=== PATIENT | male | born 1985 | race Caucasian/White ===

== ENCOUNTER → 2023-01-16 | Emergency (ER) | payer OTHER ==
[~2023-01-16] VITALS: Ht 175.3 cm; Wt 79.4 kg
[~2023-01-16] MED LIST: OMEP40CA21 PO
--- NOTE | 2023-01-16 14:10 | NUR ---
DONN PARKER AT BEDSIDE FOR MSE.
--- NOTE | 2023-01-16 14:36 | NUR ---
PT C/C ABD. PAIN RADIATING TO BACK; PAIN COMES AND GOES 02/21 SHARP. DENIES N/V/D. DENIES CP/SOB.
[2023-01-16 14:40] LABS: HEMATOCRIT 43.5 % (36.7-47.1); MEAN CORPUSCULAR HEMOGLOBIN 32.1 uug (23.8-33.4); MEAN CORPUSCULAR VOLUME 92.7 fL (73.0-96.2); PLATELET COUNT (AUTO) 166 K/uL (152-348)
[2023-01-16 14:53] LABS: CARBON DIOXIDE 28 mmol/L (21-32); CHLORIDE 103 mmol/L (98-107); GLUCOSE 118 mg/dL (74-106); POTASSIUM 3.7 mmol/L (3.5-5.1); UREA NITROGEN, BLOOD 14 mg/dL (7-18)
[2023-01-16 15:02] LABS: *BILIRUBIN,URIN NEGATIVE (NEGATIVE); *BLOOD, URINE NEGATIVE (NEGATIVE); *CLARITY,URINE CLEAR (CLEAR); *COLOR,URINE YELLOW (YELLOW); *KETONES,URINE NEGATIVE (NEGATIVE); *UROBILINOGEN,URINE 0.2 E.U./dl (NORMAL); LEUKOCYTE ESTERASE ,URINE NEGATIVE (NEGATIVE); NITRITE, URINE NEGATIVE (NEGATIVE); UGLUCOSE NEGATIVE (NEGATIVE)
[2023-01-16 15:02] LABS: ALANINE AMINOTRANSFERASE 32 U/L (16-63); ALKALINE PHOSPHATASE 83 U/L (50-136); ASPARTATE AMINOTRANSFERASE 16 U/L (15-37); BILIRUBIN,DIRECT 0.1 mg/dL (0.0-0.2); TOTAL PROTEIN, SERUM 6.8 g/dL (6.4-8.2)
[2023-01-16 15:18] LABS: BILIRUBIN,TOTAL 0.3 mg/dL (0.2-1.0); LIPASE 155 U/L (73-393)
--- NOTE | 2023-01-16 15:36 | NUR ---
Patient discharged to home in stable condition. Written and verbal after care instructions given. Patient verbalizes understanding of instructions. Stressed follow up or return to ER for worsening s/s.
[2023-01-16 15:38] VITALS: BP 119/74
== END | disposition home or self-care (01) ==
LOC: ER 14:06
DX: R10.13 Epigastric pain (principal); R07.89 Other chest pain
CPT/HCPCS: 36415; 71045; 83690; 84484; 85025; 93005; A4663